=== PATIENT | male | born 1955 | race Two or more races ===

== ENCOUNTER 2021-11-23 13:13 | Emergency (ER) | payer MEDICAID ==
[~2021-11-23] VITALS: Ht 180.3 cm; Wt 158.8 kg
[2021-11-23] MEDS ORDERED: TETRACAINE HCL 0.5% OPTH(EYE) SOLN 4ML RIGHTEYE ONE (14:30)
[2021-11-23] MEDS ORDERED: FLUORESCEIN SOD OPTH TEST STRIP RIGHTEYE ONE (14:30)
[2021-11-23 15:06] VITALS: BP 153/72
[2021-11-23] MEDS ORDERED: FLUORESCEIN SOD OPTH TEST STRIP LEFTEYE ONE (16:30)
[2021-11-23] MEDS ORDERED: POLYSOL15 OP (16:37)
== END 2021-11-23 17:29 | disposition home or self-care (01) ==
LOC: ER 13:13
DX: S05.01XA Injury of conjunctiva and corneal abrasion without foreign body, right eye, initial encounter (principal); H53.8 Other visual disturbances; Z79.899 Other long term (current) drug therapy; X58.XXXA Exposure to other specified factors, initial encounter; Y93.89 Activity, other specified; Y92.89 Other specified places as the place of occurrence of the external cause; Y99.8 Other external cause status